=== PATIENT | male | born 1980 | race Caucasian/White ===

== ENCOUNTER 2018-01-30 | Emergency (ER) | payer MEDICAID ==
[2018-01-30 00:01] VITALS: BMI 28.8
[2018-01-30 00:14] VITALS: RESP 16; TEMP 98.2; O2SAT 98
[2018-01-30] MEDS ORDERED: Famotidine 20mg/50ml Premix IVPB STA (02:49)
--- NOTE | 2018-01-30 02:51 | ED PDOC ---
HPI: Abdomen Time Seen by Provider: 01/30/18 02:35 Chief Complaint (Nursing): Abdominal Pain Chief Complaint (Provider): abdominal pain History Per: Patient History/Exam Limitations: no limitations Onset/Duration Of Symptoms: Days (3) Current Symptoms Are (Timing): Still Present Location Of Pain/Discomfort: Epigastric Quality Of Discomfort: Burning Additional Complaint(s): 37 y/o male presents for evaluation of intermittent epigastric abdominal pain x 3 days. Pain worsened after eating and when trying to sleep. Denies fever, nausea/vomiting, chest pain, shortness of breath, palpitations, changes in bowel movements, urinary symptoms. Past Medical History Reviewed: Historical Data, Nursing Documentation, Vital Signs Vital Signs: Last Vital Signs Temp 98.2 F 01/30/18 00:11 Pulse 90 01/30/18 00:11 Resp 16 01/30/18 00:11 BP 124/83 01/30/18 00:11 Pulse Ox 98 01/30/18 02:51 - Medical History PMH: No Chronic Diseases - Surgical History Surgical History: No Surg Hx - Family History Family History: States: No Known Family Hx - Living Arrangements Living Arrangements: With Family - Home Medications Home Medications: Ambulatory Orders Medication Instructions Recorded Albuterol HFA [Ventolin HFA 90 2 puff IH [id number] PRN #0 puff 07/14/16 mcg/actuation (8 g)] Levofloxacin [Levaquin] 500 mg PO DAILY #6 tablet 07/14/16 Promethazine DM [Phenergan DM 10 ml PO Q8 PRN #120 ml 07/14/16 Syrup] Famotidine [Pepcid] 20 mg PO BID #20 tab 01/30/18 - Allergies Allergies/Adverse Reactions: Allergies Allergy/AdvReac Type Severity Reaction Status Date / Time No Known Allergies Allergy Verified 01/30/18 00:11 Review of Systems ROS Statement: Except As Marked, All Systems Reviewed And Found Negative Gastrointestinal: Positive for: Abdominal Pain Physical Exam - Reviewed Nursing Documentation Reviewed: Yes Vital Signs Reviewed: Yes - Physical Exam Appears: Positive for: Well, Non-toxic, No Acute Distress Head Exam: Positive for: ATRAUMATIC, NORMAL INSPECTION, NORMOCEPHALIC Skin: Positive for: Normal Color Eye Exam: Positive for: Normal appearance ENT: Positive for: Normal ENT Inspection Cardiovascular/Chest: Positive for: Regular Rate, Rhythm Respiratory: Positive for: Normal Breath Sounds Gastrointestinal/Abdominal: Positive for: Bowel Sounds, Soft, Tenderness ( epigastric) Back: Positive for: Normal Inspection Extremity: Positive for: Normal ROM Neurologic/Psych: Positive for: Alert, Oriented - Laboratory Results Result Diagrams: 01/30/18 03:17 01/30/18 03:17 - ECG O2 Sat by Pulse Oximetry: 98 - Progress ED Course And Treament: labs, IV pepcid CT ordered for elevated WBC and slight elevation in lipase EXAM: CT Abdomen and Pelvis With Intravenous Contrast CLINICAL HISTORY: 37 years old, male; Pain; Abdominal pain; Localized; Upper; Additional info: Upper abd pain TECHNIQUE: Axial computed tomography images of the abdomen and pelvis with intravenous contrast. All CT scans at this facility use one or more dose reduction techniques, viz.: automated exposure control; ma/kV adjustment per patient size (including targeted exams where dose is matched to indication; i.e. head); or iterative reconstruction technique. 622 images are submitted.Sagittal , axial and coronal MPR reformatted images are submitted. Axial images are submitted in soft tissue and lung windows. CONTRAST: 95 mL of [id number] administered intravenously. COMPARISON: No relevant prior studies available. FINDINGS: Lung bases: Unremarkable. No mass. No consolidation. Mediastinum: Small hiatal hernia. ABDOMEN: Liver: Enlarged fatty liver. Gallbladder and bile ducts: Unremarkable. No ductal dilation. Pancreas: Unremarkable. No mass. No ductal dilation. Spleen: Unremarkable. No splenomegaly. Adrenals: Unremarkable. No mass. Kidneys and ureters: Unremarkable. No solid mass. No hydronephrosis. Stomach and bowel: There is stool like appearance to the distal small bowel. This may represent slow transit. Large amount of stool in the colon. Correlation with patient's clinical history of constipation is recommended. No mucosal thickening. PELVIS: Appendix: Normal appendix. Bladder: Partially distended bladder with bladder wall thickening. Correlation with urinalysis is recommended only if clinical cystitis is suspected. Reproductive: Unremarkable. ABDOMEN and PELVIS: Intraperitoneal space: Unremarkable. No free air. No significant fluid collection. Bones/joints: No acute fracture. No dislocation. Soft tissues: Bilateral inguinal herniation of fat. There is a fat-containing umbilical hernia. Gynecomastia. Vasculature: Unremarkable. No abdominal aortic aneurysm. Lymph nodes: Multiple subcentimeter mesenteric and ileocolic lymph nodes. Findings are nonspecific but may represent mesenteric adenitis. IMPRESSION: No acute findings. On re-eval, patient states he is feeling better. Patient educated on findings, discharged with rx pepcid Advised diet modification Follow up with PMD/GI Return precautions given Disposition - Clinical Impression Clinical Impression: Abdominal pain, Elevated lipase - Patient ED Disposition Is Patient to be Admitted: No Counseled Patient/Family Regarding: Studies Performed, Diagnosis, Need For Followup, Rx Given - Disposition Referrals: Es Garcia MD [Medical Doctor] - Maged Grace MD [Staff Provider] - Disposition: Routine/Home Disposition Time: 05:55 Condition: IMPROVED Prescriptions: Famotidine [Pepcid] 20 mg PO BID #20 tab Instructions: Acute Abdomen (Belly Pain), Adult (DC) Forms: [email or web address] ([place])
[2018-01-30] MEDS ORDERED: Famotidine 20mg/50ml 20 MG/50 ML BAG IVPB ONE (03:17)
[2018-01-30 03:44] LABS: BASO % 0.4 % (0.0-2.0); EOS # 0.5 K/uL (0.0-0.7); EOS % 4.1 % (0.0-4.0); HEMOGLOBIN 15.2 g/dL (12.0-18.0); LYMPH # 4.4 K/uL (1.0-4.3); LYMPH % 36.3 % (20.0-40.0); MEAN CELL VOLUME 83.9 fl (80.0-94.0); MEAN CORPUSCULAR HEMOGLOBIN 28.3 pg (27.0-31.0); MEAN CORPUSCULAR HGB CONC 33.7 g/dL (33.0-37.0); MEAN PLATELET VOLUME 9.1 fl (7.2-11.7); MONO # 0.9 K/uL (0.0-0.8); MONO % 7.7 % (0.0-10.0); NEUT # 6.3 K/uL (1.8-7.0); NEUT % 51.5 % (50.0-75.0); NRBC % 0.2 % (0.0-0.0); RBC 5.38 Mil/uL (4.40-5.90); RED CELL DISTRIBUTION WIDTH 12.9 % (11.5-14.5); WHITE BLOOD COUNT 12.2 K/uL (4.8-10.8)
[2018-01-30 04:05] LABS: BLOOD UREA NITROGEN 27 mg/dl (9-20); GFR AFRICAN-AMERICAN > 60; GFR NON-AFRICAN AMERICAN > 60
[2018-01-30 04:06] LABS: ALB/GLOB RATIO 1.2 (1.0-2.1); ALBUMIN 4.4 g/dL (3.5-5.0); ALT/SGPT 65 U/L (21-72); CALCIUM 9.4 mg/dL (8.4-10.2)
[2018-01-30 04:07] LABS: LIPASE 378 U/L (23-300)
[2018-01-30 04:10] LABS: AST/SGOT 37 U/L (17-59)
[2018-01-30] MEDS ORDERED: Sodium Chloride 0.9% 1,000 ML IV STA (04:13)
[2018-01-30] MEDS ORDERED: Sodium Chloride 0.9% 50 ML IV ONE (04:49)
[2018-01-30] MEDS ORDERED: Iohexol 300 100 ML IJ ONE (04:49)
[2018-01-30 06:10] VITALS: BP 144/62; PULSE 77
--- NOTE | 2018-01-30 08:50 | CT ---
PROCEDURE: CT Abdomen and Pelvis with contrast HISTORY: upper abd pain COMPARISON: None. TECHNIQUE: Contrast dose: 95 mL Omnipaque 300 Radiation dose: Total exam DLP = 424.38 mGy-cm. This CT exam was performed using one or more of the following dose reduction techniques: Automated exposure control, adjustment of the mA and/or kV according to patient size, and/or use of iterative reconstruction technique. FINDINGS: LOWER THORAX: Unremarkable. LIVER: Normal size, contour. Diffusely diminished attenuation consistent with fatty infiltration. No mass. No biliary ductal dilatation GALLBLADDER AND BILE DUCTS: Unremarkable. PANCREAS: Unremarkable. No gross lesion or ductal dilatation. SPLEEN: Unremarkable. ADRENALS: Unremarkable. No mass. KIDNEYS AND URETERS: Unremarkable. No hydronephrosis. No solid mass. VASCULATURE: Unremarkable. No aortic aneurysm. BOWEL: Unremarkable. No obstruction. No gross mural thickening. APPENDIX: Normal appendix. PERITONEUM: Unremarkable. No free fluid. No free air. LYMPH NODES: No retroperitoneal or pelvic lymphadenopathy. Shotty subcentimeter nodes in the small bowel mesenteric he and medial to the cecum/ascending colon. Findings may reflect mesenteric adenitis, nonspecific. BLADDER: Unremarkable. REPRODUCTIVE: Normal prostate BONES: No acute fracture. OTHER FINDINGS: None. IMPRESSION: Possible nonspecific mesenteric adenitis. Otherwise unremarkable examination. Preliminary interpretation of this examination was reported by [facility] at 5:51 a.m. on 01/30/2018. There is concurrence of this report with the preliminary interpretation.
== END 2018-01-30 06:10 | disposition home or self-care (01) ==
LOC: H.ER
DX: R10.13 Epigastric pain (principal); R74.8 Abnormal levels of other serum enzymes
CPT/HCPCS: 74177; 80053; 83690; 85025; 96360; 99283; J7030; Q9967